=== PATIENT | female | born 1965 | race Hispanic/Latino ===

== ENCOUNTER 2024-11-23 19:55 | Emergency (ER) | payer SELFPAY ==
[2024-11-23] MEDS ORDERED: Ipratropium/Albuterol 3 ML NEB ONE (20:37)
[2024-11-23] MEDS ORDERED: predniSONE 20 MG TAB ONE (22:21)
== END 2024-11-23 22:34 | disposition home or self-care (01) ==
LOC: CSHERS 19:55
DX: J45.901 Unspecified asthma with (acute) exacerbation (principal)
CPT/HCPCS: 93005; 93010; 94644; 94760; J7512; J7620